=== PATIENT | female | born 1960 | race Two or more races ===

== ENCOUNTER 2024-11-24 07:00 | Inpatient (IN) | payer MEDICARE, MEDICAID ==
[2024-11-22 09:43] LABS: Basophils # (auto) 0.1 10 ^3/uL (0-0.2); Basophils % (auto) 0.7 % (0.0-2.0); Eosinophils # (auto) 0.4 10 ^3/uL (0-0.8); Eosinophils % (auto) 5.4 % (0.0-7.0); Hematocrit 37.3 % (36.0-46.0); Hemoglobin 12.4 g/dL (12.2-16.2); Lymphocytes # (auto) 1.8 10 ^3/uL (0.4-5.4); Lymphocytes % (auto) 25.4 % (10.0-50.0); Mean Corpuscular Hemoglobin 27.5 pg (28.0-32.0); Mean Corpuscular Hgb Conc. 33.2 g/dL (32.0-36.0); Mean Corpuscular Volume 82.8 fL (80.0-100.0); Monocytes # (auto) 0.6 10 ^3/uL (0-1.3); Monocytes % (auto) 8.2 % (0.0-12.0); Neutrophils # (auto) 4.2 10 ^3/uL (1.6-8.6); Neutrophils % (auto) 60.3 % (37.0-80.0); Platelet Count (auto) 269 10^3/uL (140-450); Red Blood Cells 4.51 10^6/uL (4.0-5.20); Red Cell Distribution Width 14.8 % (11.8-14.3); White Blood Cell 6.9 10^3/uL (4.4-10.8)
[2024-11-22 09:46] LABS: INR 0.98 (0.9-1.15); Partial Thromboplastin Time 30.3 SEC (24.5-34.5); Prothrombin Time 10.4 sec (9.3-11.8)
[2024-11-22 09:49] LABS: Alanine Aminotransferase 13 U/L (7-40); Albumin 4.8 g/dL (3.2-4.8); Alkaline Phosphatase 75 U/L (46-116); Anion Gap 9 (5-15); BUN/Creatinine Ratio 27.9 (10.0-20.0); Blood Urea Nitrogen 19 mg/dL (9-23); Carbon Dioxide 27 mmol/L (20-31); Chloride 103 mmol/L (98-107); Glucose 103 mg/dL (74-106); Potassium 3.7 mmol/L (3.5-5.1); Sodium 139 mmol/L (136-145); Total Protein 7.4 g/dL (5.7-8.2)
[2024-11-22 09:51] LABS: Bilirubin, Total 0.4 mg/dL (0.2-1.0)
[2024-11-22 09:58] LABS: Aspartate Aminotransferase 12 U/L (13-40)
[2024-11-22 10:00] LABS: Urine Bacteria FEW /hpf (None Seen); Urine Blood Negative /uL (Negative); Urine Clarity Clear (Clear); Urine Protein, UAD 1+ (Negative); Urine Specific Gravity 1.013 (1.001-1.035); Urine Squamous Epithelial Cell FEW /hpf (<5); Urine Urobilinogen Normal (Negative); Urine WBC 11 /HPF (0-5); Urine pH 5.5 (5.0-9.0)
[2024-11-22 10:01] LABS: Urine Color Light-Yellow (Yellow)
[2024-11-24] VITALS (17 sets, daily range): BP systolic 122–161; BP diastolic 44–70; PULSE 50–72; RESP 16–18; TEMP 95.9–98.8; O2SAT 92–100
[~2024-11-24] VITALS: Ht 160 cm; Wt 110.2 kg
[~2024-11-24 07:00] MED LIST: AMLO1TAB23 PO; ASPI81CH74 PO; ATOR20TA50 PO; AZEL137S7; BIOT10004 PO; CALCTAB PO; CARB1DRO OP; CARV-217 PO; CYCL0.09 OP; FAMO-12 PO; FLUO-125 PO; GABA-1308 PO; ISO60SRT PO; LACT12CR17 EX; LOSA100T25 PO; METF-372 PO; OMEG1400 PO; TIRZ2.5I SC; TRAZ-227 PO; [UNRECOGNIZED DRUG - CODE] OP
[2024-11-24] MEDS: ceFAZolin 2 GM/D5W50ml 50 ML IV ONE (07:15)
[2024-11-24] MEDS ORDERED: ePHEDrine SULFATE 50 MG/ML AMP ONE (10:15)
[2024-11-24] MEDS ORDERED: KETAMINE 50mg/ML 1ml syringe ONE (10:15)
[2024-11-24] MEDS ORDERED: MORPHINE SULF PF 5 MG/10 ML VIAL ONE (10:15)
[2024-11-24] MEDS ORDERED: fentaNYL CITRATE 100 MCG/2 ML VL ONE (10:15)
[2024-11-24] MEDS ORDERED: KETOROLAC TROMETH 30 MG/ML 1ML VIAL ONE (10:15)
[2024-11-24] MEDS ORDERED: PHENYLEPHRINE HCL 10 MG/ML VL ONE (10:15)
[2024-11-24] MEDS ORDERED: MIDAZOLAM HCL 2MG/2ML 2ml VIAL (1mg/ml) ONE (10:15)
[2024-11-24] MEDS ORDERED: GLYCOPYRROLATE 0.2 MG/ML 1ML VIAL ONE (10:16)
[2024-11-24] MEDS ORDERED: PROPOFOL 10 MG/ML 20 ML IV ONE (10:16)
[2024-11-24] MEDS ORDERED: ONDANSETRON HCL 4 MG/2 ML VIAL ONE (10:16)
[2024-11-24] MEDS: BUPIVACAINE 0.25% INJ 50ML VIAL ONE (10:17)
[2024-11-24] MEDS: TRANEXAMIC ACID 20 ML ONE (10:21)
[2024-11-24] MEDS: CEFEPIME 1GM/ 50ML 50 ML IV ONE (11:15)
[2024-11-24] MEDS: VANCOMYCIN HCL 1000 MG VL ONE ×2 (12:26)
[2024-11-24] MEDS ORDERED: ONDANSETRON HCL 4 MG/2 ML VIAL IV PRN (13:00)
[2024-11-24] MEDS ORDERED: NALOXONE HCL 0.4 MG/ML VIAL IV PRN (13:00)
[2024-11-24] MEDS ORDERED: DexAMETHasone SOD PHOS 10MG/1ML VIAL INJ IV PRN (13:00)
[2024-11-24] MEDS ORDERED: diphenhdrAMINE HCL 50 MG/1 ML VL IV PRN (13:00)
[2024-11-24] MEDS ORDERED: MORPHINE SULFATE INJ 2 MG/ml SYRG IV PRN (13:15)
[2024-11-24] MEDS ORDERED: NITROGLYCERIN 0.4 MG SL TAB SL PRN (13:15)
--- NOTE | 2024-11-24 13:34 | DVHOP2 ---
Operative Report - 2 Report Details Date: 11/24/24 Preop Diagnosis: Right knee osteoarthritis , endstage Postop Diagnosis: same Surgeon: René Sol MD Java Spring Developer: none Anesthesiologist: Dr Rueda Anesthesia: Regional Drains: none Implant: [place] PS knee Femur 4, Tibia 4, tray 9, patella 29 Consent: The patient was informed of the risks and benefits of the procedure. These incl ude but are not limited to complications of anesthesia, postoperative infection, incomplete relief of symptoms, recurrence of symptoms, damage to blood vessels, nerves and tendons, deep venous thrombosis, pulmonary embolism and possible need for repeat surgery in the future. Complications: none Estimated Blood Loss: 200 cc Fluids: 1 L crystalloid Findings: Right knee OA , endstage Indications for Surgery: Right knee OA endstage, non responsive to conservative care, affecting ADLs Name of Procedure Performed Right Total knee arthroplasty Procedure Details Procedure Details: Patient brought into the operating room received Ancef 2 g IV piggyback preoperatively Tx a 2 g IV piggyback preoperatively spinal anesthetic Dr. Stafforded without complication nonsterile tourniquet right thigh sterile prep and drape right lower extremity time-out performed cautioned right combination right side correct site after reviewing the operative consent history and physical my initials on right knee exsanguination with the Esmarch tourniquet elevated to 300 mm Hg 45 minute time anterior longitudinal incision made sharp to add to deep fascia medial parapatellar understood incision made eversion of patella hyperflexion of knee excision of suprapatellar fat infrapatellar fat remain to gain access to intramedullary canal of the femur intramedullary guide and distal femoral cutting block set for 5 degree valgus and 8 mm resection 8 mm distal tip distal femoral cut made then the posterior femoral condylar referencing guide tapped into place and a size four seemed to be appropriate size a size four four in one cutting block tapped into place distal femoral cuts made femoral notch cutting guide tapped into place distal femoral cuts made of notch cuts I had retractors placed posterior medial and lateral to tibial plateau meet Reamer to gain access to intramedullary canal of tibia intramedullary guide anam then used to align proximal tibia resection guide resecting 2 mm off of low or medial side aligning with the 2nd metatarsal ray proximal tibial cut made soft tissue balancing performed balancing medial and lateral as well as flexion-extension with our release of deep fibers of medial collateral ligament and subperiosteal elevation proximal medial tibia trial alignment and with a four femur for tibia nine trial with excellent range of motion stability varus valgus throughout range of motion and good patellar tracking rotation of the tibial component then marked tibial tray then pinned into place tibial keel punch used our tapped into place the patellar surface prepared a size 29 patellar button resection 9 mm of bone and drilling three pegs a triangular down leg a standard longitudinal traction excellent hemostasis noted irrigation performed knee repacked re-exs anguinated with the Esmarch tourniquet elevated to 300 mm Hg postop lavage of all bony surfaces as cementing of should components into place four femur four tibia nine poly 29 patella excellent range of motion stability confirmed began and excellent patellar tracking confirmed with only slight lateral retinacular release required and then to regular down again excellent hemostasis noted irrigation of with Betadine saline mixture then normal saline then placement of vancomycin powder 1 g then closure I assume prompted a Vicryl suture subcutaneous 2-0 Vicryl suture skin haritha fluffs ABD Roger wrap no drains specimens or complications knows his voice. Specimen: none Condition Stable Disposition Still a Patient RENÉ SOL MD Nov 24, 2024 13:34
[2024-11-24] MEDS ORDERED: BISACODYL 5 MG EC TAB PO PRN (13:45)
[2024-11-24] MEDS: LACTATED RINGER'S 1,000 ML IV SCH (13:45)
[2024-11-24] MEDS: ceFAZolin 1GM/50ML 50 ML IV SCH (14:00)
--- NOTE | 2024-11-24 14:14 | DVH ---
EXAM: XY R KNEE 3V XRAY CLINICAL INDICATION: S/P SURGERY TECHNIQUE: XY R KNEE 3V XRAY Comparison: None FINDINGS/IMPRESSION: Right total knee arthroplasty.
[2024-11-24] MEDS: KETOROLAC TROMETH 30 MG/ML 1ML VIAL IV PRN (16:06)
[2024-11-24] MEDS: CLINDAMYCIN 600MG IV 50 ML IV SCH (18:11)
[2024-11-24] MEDS: DOCUSATE SOD 100 MG CAP PO SCH (22:28)
[2024-11-25] VITALS (23 sets, daily range): BP systolic 122–162; BP diastolic 41–70; PULSE 56–72; RESP 14–20; TEMP 97.9–98.6; O2SAT 92–99
[2024-11-25] MEDS: ACETAMINOPHEN 325 MG TAB PO PRN (10:40)
[2024-11-25] MEDS: ENOXAPARIN SOD 30 MG/0.3 ML SYRINGE SC SCH (10:41)
--- NOTE | 2024-11-25 12:13 | DVHPN2 ---
Date of Progress Note Date of Progress Note Date of Progress Note: 11/25/24 Date of Admission Date of Admission Date of Admission: Date of Admission: Nov 24, 2024 at 13:13 Overnight Events Overnight events Overnight Events pt has orozco in , tess pain on PO meds, no PT yet Allergies: Coded Allergies: NO KNOWN ALLERGIES (Unverified , 11/18/24) Home Meds Reported Medications [place]-3 Fatty Acids ([place]-3) 1,400 Mg Cap, 1000 MG PO DAILY, CAP 11/18/24 Lactic Acid (Ammonium Lactate) 12 % Cre, 12 % EX DAILY, CRE 11/18/24 Trazodone Hcl (Trazodone Hcl) 50 Mg Tab, 50 MG PO HS, MG 11/18/24 Gabapentin (Gabapentin) 100 Mg Cap, 100 MG PO BID for 30 Days, MG 11/18/24 Ketotifen Fumarate (Ophth) (Ketotifen Fumarate) 0.035 % Agueda, 0.025 % OP DAILY, ML 11/18/24 Metformin Hydrochloride (Metformin Hcl) 1,000 Mg Tab, 1 TAB PO BID, #60 TAB 5 Refills 11/18/24 Azelastine Hcl-Fluticasone Pro (DYMISTA) 1 Spr Spr, 1 SPRAY NA BID, #23 GRAMS 6 Refills 11/18/24 Carvedilol (Coreg) 25 Mg Tab, 1 TAB PO BID, #60 TAB 5 Refills 11/18/24 Cyclosporine (Cequa) 0.09 % Agueda, 0.09 % OP DAILY, ML 11/18/24 Carboxymethylcellulose Sodium (Celluvisc) 1 % Bryce, 1 % OP DAILY, DROP 11/18/24 Calcium Carbonate-Cholecalcife (Caltrate 600+D3 600-800 mg-Unit) 1 Tab Tab, 1 TAB PO, TAB 11/18/24 Fluoxetine Hcl (Fluoxetine Hcl) 20 Mg Cap, 20 MG PO DAILY for 30 Days, MG 11/18/24 Famotidine (Famotidine) 20 Mg Tab, 40 MG PO DAILY for 30 Days, MG 11/18/24 Amlodipine Besylate (Amlodipine Besylate) 10 Mg Tab, 1 TAB PO DAILY, #30 TAB 5 Refills 11/18/24 Atorvastatin Calcium (ATORVASTATIN CALCIUM) 20 Mg Tab, 1 TAB PO DAILY, #30 TAB 5 Refills 11/18/24 Isosorbide Mononitrate (Isosorbide Mononitrate ER) 60 Mg Tab, 60 MG PO DAILY, TAB 11/18/24 Losartan Potassium & Hydrochlo (Hyzaar) 1 Tab Tab, 1 TAB PO DAILY, #30 TAB 5 Refills 11/18/24 Biotin (Vitamin H) (Biotin) 1,000 Mcg Tab, 1000 MCG PO DAILY, TAB 11/18/24 Tirzepatide (Mounjaro) Unknown Strength Inj, SC, INJ 11/18/24 Aspirin (Aspirin 81 Low Dose) 81 Mg Chw, 81 MG PO, TAB.CHEW 11/18/24 Current Medications Current Medications Medications (Trade) Dose Ordered Sig/Alejandra Route PRN Reason Start Time Stop Time Status Last Admin Diphenhydramine HCl (Benadryl Injection) 25 mg Q4HP PRN IV FOR ITCHING 11/24/24 13:00 Ondansetron HCl (Zofran) 4 mg Q4HP PRN IV NAUSEA / VOMITING 11/24/24 13:00 Naloxone HCl (Narcan) 0.2 mg Q5M PRN IV For respirations < than 10/min 11/24/24 13:00 11/24/24 13:11 DC Dexamethasone Sodium Phosphate (Decadron Injection) 10 mg LPN RN PRN IV FOR ITCHING 11/24/24 13:00 11/24/24 13:11 DC Ketorolac Tromethamine (Toradol Injection) 15 mg Q6HP PRN IV MODERATE PAIN (4-6 PAIN SCALE) 11/24/24 13:00 11/29/24 12:59 11/25/24 05:17 Nitroglycerin (Ntrostat Sublingual) 0.4 mg Q5MINP PRN SL FOR CHEST PAIN 11/24/24 13:15 Morphine Sulfate 2 mg Q30M PRN IV FOR CHEST PAIN 11/24/24 13:15 Lactated Ringer's 1,000 ml @ 100 mls/hr Q10H IV 11/24/24 13:45 11/25/24 10:43 Cefazolin Sodium 50 ml @ 50 mls/hr Q6H IV 11/24/24 14:00 11/25/24 02:59 DC 11/25/24 02:24 Clindamycin Phosphate 50 ml @ 50 mls/hr Q6HR IV 11/24/24 18:00 11/25/24 06:59 DC 11/25/24 05:21 Acetaminophen (Tylenol Tablet) 650 mg Q6HP PRN PO MILD PAIN OR TEMP >101 11/24/24 13:45 11/25/24 10:40 Docusate Sodium (Colace Capsule) 100 mg Q12HR PO 11/24/24 22:00 11/25/24 10:41 Bisacodyl (Dulcolax EC Tablet) 5 mg Q12HP PRN PO FOR CONSTIPATION 11/24/24 13:45 Enoxaparin Sodium (Lovenox) 30 mg Q12HR SC 11/25/24 10:00 11/25/24 10:41 Physical Examination General Examination: Last Vital sign Vital Signs Date Time Temp Pulse Resp B/P (MAP) Pulse Ox O2 Delivery O2 Flow Rate FiO2 11/25/24 09:00 98.1 60 20 130/43 (72) 95 98.1 11/24/24 20:00 Nasal Cannula* 2 28 General: General: No apparent distress, appears comfortable. Cooperative. Extremities: Right knee incision well healed NVI no drainage knee immobilizer in place Neurological Examination: Neurological Examination: Mental Status: Cranial Nerves: Motor Examination: Reflexes: Sensory: Coordination: Gait: Labs: Labs: Laboratory Tests Test 11/22/24 09:04 11/24/24 07:35 Range/Units White Blood Count 6.9 4.4-10.8 10^3/uL Red Blood Count 4.51 4.0-5.20 10^6/uL Hemoglobin 12.4 12.2-16.2 g/dL Hematocrit 37.3 36.0-46.0 % Mean Corpuscular Volume 82.8 80.0-100.0 fL Mean Corpuscular Hemoglobin 27.5 L 28.0-32.0 pg Mean Corpuscular Hemoglobin Concent 33.2 32.0-36.0 g/dL Red Cell Distribution Width 14.8 H 11.8-14.3 % Platelet Count 269 140-450 10^3/uL Mean Platelet Volume 7.3 6.9-10.8 fL Neutrophils (%) (Auto) 60.3 37.0-80.0 % Lymphocytes (%) (Auto) 25.4 10.0-50.0 % Monocytes (%) (Auto) 8.2 0.0-12.0 % Eosinophils (%) (Auto) 5.4 0.0-7.0 % Basophils (%) (Auto) 0.7 0.0-2.0 % Neutrophils # (Auto) 4.2 1.6-8.6 10 ^3/uL Lymphocytes # (Auto) 1.8 0.4-5.4 10 ^3/uL Monocytes # (Auto) 0.6 0-1.3 10 ^3/uL Eosinophils # (Auto) 0.4 0-0.8 10 ^3/uL Basophils # (Auto) 0.1 0-0.2 10 ^3/uL Nucleated Red Blood Cells 0.0 % Prothrombin Time 10.4 9.3-11.8 sec Prothrombin Time INR 0.98 0.9-1.15 Activated Partial Thromboplast Time 30.3 24.5-34.5 SEC Urine Color Light-yellow Yellow Urine Clarity Clear Clear Urine pH 5.5 5.0-9.0 Urine Specific [place] 1.013 1.001-1.035 Urine Protein 1+ H Negative Urine Ketones Negative Negative Urine Blood Negative Negative /uL Urine Nitrite Negative Negative Urine Bilirubin Negative Negative Urine Urobilinogen Normal Negative mg/dL Urine Leukocyte Esterase 1+ Negative /uL Urine RBC <1 0 - 4 /hpf Urine Microscopic WBC 11 H 0-5 /HPF Urine Squamous Epithelial Cells Few <5 /hpf Urine Bacteria Few H None Seen /hpf Urine Glucose Normal Normal mg/dL Sodium Level 139 136-145 mmol/L Potassium Level 3.7 3.5-5.1 mmol/L Chloride Level 103 98-107 mmol/L Carbon Dioxide Level 27 20-31 mmol/L Anion Gap 9 5-15 Blood Urea Nitrogen 19 9-23 mg/dL Creatinine 0.68 0.550-1.02 mg/dL Glomerular Filtration Rate Calc 97 >90 mL/min BUN/Creatinine Ratio 27.9 H 10.0-20.0 Serum Glucose 103 74-106 mg/dL Calcium Level 10.0 8.7-10.4 mg/dL Total Bilirubin 0.4 0.2-1.0 mg/dL Aspartate Amino Transferase (AST) 12 L 13-40 U/L Alanine Aminotransferase (ALT) 13 7-40 U/L Alkaline Phosphatase 75 46-116 U/L Total Protein 7.4 5.7-8.2 g/dL Albumin 4.8 3.2-4.8 g/dL POC Glucose 117 H 70-106 mg/dl Assessment/Plan Assessment/Plan Assessment and Plan:Olena Pate is a 64 year old female POD 1 s/p RIGHT TKA 1) PT 2) wean from orozco Plan discussed with: Patient RENÉ SOL MD Nov 25, 2024 12:13
[2024-11-26] VITALS (8 sets, daily range): BP systolic 110–146; BP diastolic 41–55; PULSE 59–80; RESP 14–19; TEMP 97.6–98.6; O2SAT 90–98
--- NOTE | 2024-11-26 13:30 | DVHPN2 ---
Date of Progress Note Date of Progress Note Date of Progress Note: 11/26/24 Date of Admission Date of Admission Date of Admission: Date of Admission: Nov 24, 2024 at 13:13 Overnight Events Overnight events Overnight Events Pt able to void without orozco catheter Pt tess pain well on PO meds Pt received PT yesterday afternoon, walked to door Allergies: Coded Allergies: NO KNOWN ALLERGIES (Unverified , 11/18/24) Home Meds Reported Medications [place]-3 Fatty Acids ([place]-3) 1,400 Mg Cap, 1000 MG PO DAILY, CAP 11/18/24 Lactic Acid (Ammonium Lactate) 12 % Cre, 12 % EX DAILY, CRE 11/18/24 Trazodone Hcl (Trazodone Hcl) 50 Mg Tab, 50 MG PO HS, MG 11/18/24 Gabapentin (Gabapentin) 100 Mg Cap, 100 MG PO BID for 30 Days, MG 11/18/24 Ketotifen Fumarate (Ophth) (Ketotifen Fumarate) 0.035 % Agueda, 0.025 % OP DAILY, ML 11/18/24 Metformin Hydrochloride (Metformin Hcl) 1,000 Mg Tab, 1 TAB PO BID, #60 TAB 5 Refills 11/18/24 Azelastine Hcl-Fluticasone Pro (DYMISTA) 1 Spr Spr, 1 SPRAY NA BID, #23 GRAMS 6 Refills 11/18/24 Carvedilol (Coreg) 25 Mg Tab, 1 TAB PO BID, #60 TAB 5 Refills 11/18/24 Cyclosporine (Cequa) 0.09 % Agueda, 0.09 % OP DAILY, ML 11/18/24 Carboxymethylcellulose Sodium (Celluvisc) 1 % Bryce, 1 % OP DAILY, DROP 11/18/24 Calcium Carbonate-Cholecalcife (Caltrate 600+D3 600-800 mg-Unit) 1 Tab Tab, 1 TAB PO, TAB 11/18/24 Fluoxetine Hcl (Fluoxetine Hcl) 20 Mg Cap, 20 MG PO DAILY for 30 Days, MG 11/18/24 Famotidine (Famotidine) 20 Mg Tab, 40 MG PO DAILY for 30 Days, MG 11/18/24 Amlodipine Besylate (Amlodipine Besylate) 10 Mg Tab, 1 TAB PO DAILY, #30 TAB 5 Refills 11/18/24 Atorvastatin Calcium (ATORVASTATIN CALCIUM) 20 Mg Tab, 1 TAB PO DAILY, #30 TAB 5 Refills 11/18/24 Isosorbide Mononitrate (Isosorbide Mononitrate ER) 60 Mg Tab, 60 MG PO DAILY, TAB 11/18/24 Losartan Potassium & Hydrochlo (Hyzaar) 1 Tab Tab, 1 TAB PO DAILY, #30 TAB 5 Refills 11/18/24 Biotin (Vitamin H) (Biotin) 1,000 Mcg Tab, 1000 MCG PO DAILY, TAB 11/18/24 Tirzepatide (Mounjaro) Unknown Strength Inj, SC, INJ 11/18/24 Aspirin (Aspirin 81 Low Dose) 81 Mg Chw, 81 MG PO, TAB.CHEW 11/18/24 Physical Examination General Examination: Last Vital sign Vital Signs Date Time Temp Pulse Resp B/P (MAP) Pulse Ox O2 Delivery O2 Flow Rate FiO2 11/26/24 08:32 98.6 75 18 146/55 (85) 94 98.6 11/26/24 08:00 Nasal Cannula* 2 28 General: General: No apparent distress, appears comfortable. Cooperative. Extremities: Right knee no drainage in knee immobilizer NVI Skin: no drainage Neurological Examination: Neurological Examination: Mental Status: Cranial Nerves: Motor Examination: Reflexes: Sensory: Coordination: Gait: NVI Labs: Labs: Laboratory Tests Test 11/22/24 09:04 11/24/24 07:35 Range/Units White Blood Count 6.9 4.4-10.8 10^3/uL Red Blood Count 4.51 4.0-5.20 10^6/uL Hemoglobin 12.4 12.2-16.2 g/dL Hematocrit 37.3 36.0-46.0 % Mean Corpuscular Volume 82.8 80.0-100.0 fL Mean Corpuscular Hemoglobin 27.5 L 28.0-32.0 pg Mean Corpuscular Hemoglobin Concent 33.2 32.0-36.0 g/dL Red Cell Distribution Width 14.8 H 11.8-14.3 % Platelet Count 269 140-450 10^3/uL Mean Platelet Volume 7.3 6.9-10.8 fL Neutrophils (%) (Auto) 60.3 37.0-80.0 % Lymphocytes (%) (Auto) 25.4 10.0-50.0 % Monocytes (%) (Auto) 8.2 0.0-12.0 % Eosinophils (%) (Auto) 5.4 0.0-7.0 % Basophils (%) (Auto) 0.7 0.0-2.0 % Neutrophils # (Auto) 4.2 1.6-8.6 10 ^3/uL Lymphocytes # (Auto) 1.8 0.4-5.4 10 ^3/uL Monocytes # (Auto) 0.6 0-1.3 10 ^3/uL Eosinophils # (Auto) 0.4 0-0.8 10 ^3/uL Basophils # (Auto) 0.1 0-0.2 10 ^3/uL Nucleated Red Blood Cells 0.0 % Prothrombin Time 10.4 9.3-11.8 sec Prothrombin Time INR 0.98 0.9-1.15 Activated Partial Thromboplast Time 30.3 24.5-34.5 SEC Urine Color Light-yellow Yellow Urine Clarity Clear Clear Urine pH 5.5 5.0-9.0 Urine Specific [place] 1.013 1.001-1.035 Urine Protein 1+ H Negative Urine Ketones Negative Negative Urine Blood Negative Negative /uL Urine Nitrite Negative Negative Urine Bilirubin Negative Negative Urine Urobilinogen Normal Negative mg/dL Urine Leukocyte Esterase 1+ Negative /uL Urine RBC <1 0 - 4 /hpf Urine Microscopic WBC 11 H 0-5 /HPF Urine Squamous Epithelial Cells Few <5 /hpf Urine Bacteria Few H None Seen /hpf Urine Glucose Normal Normal mg/dL Sodium Level 139 136-145 mmol/L Potassium Level 3.7 3.5-5.1 mmol/L Chloride Level 103 98-107 mmol/L Carbon Dioxide Level 27 20-31 mmol/L Anion Gap 9 5-15 Blood Urea Nitrogen 19 9-23 mg/dL Creatinine 0.68 0.550-1.02 mg/dL Glomerular Filtration Rate Calc 97 >90 mL/min BUN/Creatinine Ratio 27.9 H 10.0-20.0 Serum Glucose 103 74-106 mg/dL Calcium Level 10.0 8.7-10.4 mg/dL Total Bilirubin 0.4 0.2-1.0 mg/dL Aspartate Amino Transferase (AST) 12 L 13-40 U/L Alanine Aminotransferase (ALT) 13 7-40 U/L Alkaline Phosphatase 75 46-116 U/L Total Protein 7.4 5.7-8.2 g/dL Albumin 4.8 3.2-4.8 g/dL POC Glucose 117 H 70-106 mg/dl Assessment/Plan Assessment/Plan Assessment and Plan:Olena Pate is a 64 year old female POD 2 Right TKA, doing well Pt evaluated with Sander Santiago PA interpreting 1) clear for dc from ortho view 2) WBAT with knee immobilizer, FWW 3) dc meds, norco 10/325 have been called in 4) follow up ortho clinic 2 wks with XR Right Knee Plan discussed with: Patient RENÉ SOL MD Nov 26, 2024 13:30
--- NOTE | 2024-11-26 21:07 | DVHPN2 ---
Progress Note Date Seen: Nov 27, 2024 Medical Necessity Reason Pt with a Central, PICC or Fol: No Subjective Review of Systems: CVS:Normal, RESPIRATORY:Normal, GI:Normal, :Normal, NEURO:Normal Objective vital signs Vital Sign Date Time Temp Pulse Resp B/P (MAP) Pulse Ox O2 Delivery O2 Flow Rate FiO2 11/26/24 16:49 97.9 70 16 115/41 (65) 98 97.9 11/26/24 08:00 Nasal Cannula* 2 28 Total Intake and Output 11/25/24 11/25/24 11/26/24 15:00 23:00 07:00 Intake Total 350 ml 3790 ml 1200 ml Output Total 1700 ml 1100 ml Balance -1350 ml 2690 ml 1200 ml medications Current Medications Medications Dose Ordered Sig/Alejandra Route Start Time Stop Time Status Last Admin Dose Admin Diphenhydramine HCl 25 mg Q4HP PRN IV 11/24/24 13:00 Ondansetron HCl 4 mg Q4HP PRN IV 11/24/24 13:00 Ketorolac Tromethamine 15 mg Q6HP PRN IV 11/24/24 13:00 11/29/24 12:59 11/26/24 06:03 15 MG Nitroglycerin 0.4 mg Q5MINP PRN SL 11/24/24 13:15 Morphine Sulfate 2 mg Q30M PRN IV 11/24/24 13:15 Lactated Ringer's 1,000 ml @ 100 mls/hr Q10H IV 11/24/24 13:45 11/26/24 15:50 100 MLS/HR Acetaminophen 650 mg Q6HP PRN PO 11/24/24 13:45 11/26/24 16:57 650 MG Docusate Sodium 100 mg Q12HR PO 11/24/24 22:00 11/26/24 10:10 100 MG Bisacodyl 5 mg Q12HP PRN PO 11/24/24 13:45 Enoxaparin Sodium 30 mg Q12HR SC 11/25/24 10:00 11/26/24 10:10 30 MG Examination: GENERAL:Normal, LUNGS:Normal, CVS:Normal, ABDOMEN:Normal, SKIN:Normal, NEURO:Normal laboratory and microbiology Laboratory Tests 11/22/24 09:04 Test 11/22/24 09:04 Range/Units Serum Glucose 103 74-106 mg/dL Labs and/or images reviewed: Labs reviewed by me, Image(s) reviewed by me Problem List/Assessment/Plan Problem List/Assessment/Plan 1. S/P right knee replacement Pain medication 2. Hypertension Continue home meds 3. Hyperlipidemia Continue home meds Subjective: Awake and alert Objective: Patient was admitted S/P right knee replacement by Dr. Tho Rhodes, patient was experiencing severe knee pain. Dressing remains intact to right knee Plan: Pain medication as needed, awaiting clearance from electronic security specialist Plan discussed with: Patient Date of Service: Nov 27, 2024 Billing Provider: KHAI HURST MD Common Visit Codes: [id number] INP/OBS CARE (MOD) KIANA GOMEZ [employer] Nov 26, 2024 21:07
--- NOTE | 2024-11-26 21:07 | DVHHP2 ---
History of Present Illness History of Present Illness Patient was admitted S/P right knee replacement by Dr. Davila. Patient was having severe pain to right knee. Review of Systems Respiratory: No: Cough, Dry, Shortness of breath, SOB with excertion, Wheezing, Hemoptysis, Pleuritic Pain, Sputum, Wheezing, Other Cardiovascular: No: Chest Pain, Palpitations, Orthopnea, Paroxysmal Noc. Dyspnea, Edema, Lt Headedness, Other Gastrointestinal: No: Nausea, Vomiting, Abdominal Pain, Diarrhea, Constipation, Melena, Hematochezia, Other Skin: No: Rash, Lesions, Jaundice, Bruising, Other Allergies: Coded Allergies: NO KNOWN ALLERGIES (Unverified , 11/18/24) Medications Current Medications Medications Dose Ordered Sig/Alejandra Route Start Time Stop Time Status Last Admin Dose Admin Diphenhydramine HCl 25 mg Q4HP PRN IV 11/24/24 13:00 Ondansetron HCl 4 mg Q4HP PRN IV 11/24/24 13:00 Ketorolac Tromethamine 15 mg Q6HP PRN IV 11/24/24 13:00 11/29/24 12:59 11/26/24 06:03 15 MG Nitroglycerin 0.4 mg Q5MINP PRN SL 11/24/24 13:15 Morphine Sulfate 2 mg Q30M PRN IV 11/24/24 13:15 Lactated Ringer's 1,000 ml @ 100 mls/hr Q10H IV 11/24/24 13:45 11/26/24 15:50 100 MLS/HR Acetaminophen 650 mg Q6HP PRN PO 11/24/24 13:45 11/26/24 16:57 650 MG Docusate Sodium 100 mg Q12HR PO 11/24/24 22:00 11/26/24 10:10 100 MG Bisacodyl 5 mg Q12HP PRN PO 11/24/24 13:45 Enoxaparin Sodium 30 mg Q12HR SC 11/25/24 10:00 11/26/24 10:10 30 MG Exam Vital Signs Vital Signs Date Time Temp Pulse Resp B/P (MAP) Pulse Ox O2 Delivery O2 Flow Rate FiO2 11/26/24 16:49 97.9 70 16 115/41 (65) 98 97.9 11/26/24 08:00 Nasal Cannula* 2 28 General Appearance: Alert, Oriented X3, Cooperative Respiratory: Clear to auscultation Cardiovascular: Regular rate, Normal S1, Normal S2, No murmurs Abdominal: Normal bowel sounds, Soft, No tenderness Labs/Xrays Labs Test 11/24/24 07:35 11/22/24 09:04 Range/Units POC Glucose 117 H 70-106 mg/dl White Blood Count 6.9 4.4-10.8 10^3/uL Red Blood Count 4.51 4.0-5.20 10^6/uL Hemoglobin 12.4 12.2-16.2 g/dL Hematocrit 37.3 36.0-46.0 % Mean Corpuscular Volume 82.8 80.0-100.0 fL Mean Corpuscular Hemoglobin 27.5 L 28.0-32.0 pg Mean Corpuscular Hemoglobin Concent 33.2 32.0-36.0 g/dL Red Cell Distribution Width 14.8 H 11.8-14.3 % Platelet Count 269 140-450 10^3/uL Mean Platelet Volume 7.3 6.9-10.8 fL Neutrophils (%) (Auto) 60.3 37.0-80.0 % Lymphocytes (%) (Auto) 25.4 10.0-50.0 % Monocytes (%) (Auto) 8.2 0.0-12.0 % Eosinophils (%) (Auto) 5.4 0.0-7.0 % Basophils (%) (Auto) 0.7 0.0-2.0 % Neutrophils # (Auto) 4.2 1.6-8.6 10 ^3/uL Lymphocytes # (Auto) 1.8 0.4-5.4 10 ^3/uL Monocytes # (Auto) 0.6 0-1.3 10 ^3/uL Eosinophils # (Auto) 0.4 0-0.8 10 ^3/uL Basophils # (Auto) 0.1 0-0.2 10 ^3/uL Nucleated Red Blood Cells 0.0 % Prothrombin Time 10.4 9.3-11.8 sec Prothrombin Time INR 0.98 0.9-1.15 Activated Partial Thromboplast Time 30.3 24.5-34.5 SEC Urine Color Light-yellow Yellow Urine Clarity Clear Clear Urine pH 5.5 5.0-9.0 Urine Specific [place] 1.013 1.001-1.035 Urine Protein 1+ H Negative Urine Ketones Negative Negative Urine Blood Negative Negative /uL Urine Nitrite Negative Negative Urine Bilirubin Negative Negative Urine Urobilinogen Normal Negative mg/dL Urine Leukocyte Esterase 1+ Negative /uL Urine RBC <1 0 - 4 /hpf Urine Microscopic WBC 11 H 0-5 /HPF Urine Squamous Epithelial Cells Few <5 /hpf Urine Bacteria Few H None Seen /hpf Urine Glucose Normal Normal mg/dL Sodium Level 139 136-145 mmol/L Potassium Level 3.7 3.5-5.1 mmol/L Chloride Level 103 98-107 mmol/L Carbon Dioxide Level 27 20-31 mmol/L Anion Gap 9 5-15 Blood Urea Nitrogen 19 9-23 mg/dL Creatinine 0.68 0.550-1.02 mg/dL Glomerular Filtration Rate Calc 97 >90 mL/min BUN/Creatinine Ratio 27.9 H 10.0-20.0 Serum Glucose 103 74-106 mg/dL Calcium Level 10.0 8.7-10.4 mg/dL Total Bilirubin 0.4 0.2-1.0 mg/dL Aspartate Amino Transferase (AST) 12 L 13-40 U/L Alanine Aminotransferase (ALT) 13 7-40 U/L Alkaline Phosphatase 75 46-116 U/L Total Protein 7.4 5.7-8.2 g/dL Albumin 4.8 3.2-4.8 g/dL Assessment/Plan Assessment/Plan 1. S/P right knee replacement Pain medication 2. Hypertension Continue home meds 3. Hyperlipidemia Continue home meds Plan discussed with: Patient Date of Service: Nov 26, 2024 Billing Provider: KHAI HURST MD Common Visit Codes: [id number] INP/OBS CARE (MOD) KIANA GOMEZ [employer] Nov 26, 2024 21:07
[2024-11-27 01:00] VITALS: BP 137/42; PULSE 83; RESP 16; TEMP 98.5; O2SAT 94
[2024-11-27 05:00] VITALS: BP 123/52; PULSE 69; RESP 16; TEMP 98.6; O2SAT 95
[2024-11-27 08:00] VITALS: PULSE 68; PULSE 77; RESP 16; O2SAT 95
[2024-11-27 09:00] VITALS: BP 116/53; PULSE 68; RESP 16; TEMP 98.5; O2SAT 95
[2024-11-27] MEDS ORDERED: ASPI-325 PO (11:23)
--- NOTE | 2024-11-27 11:51 | DVHDS2 ---
Discharge Summary Date of Admission Nov 24, 2024 at 13:13 Date of Discharge: Nov 27, 2024 Admitting Diagnosis S/P right knee replacement Labs/Diagnostic Data: Laboratory Results Test 11/24/24 07:35 11/22/24 09:04 POC Glucose 117 mg/dl (70-106) White Blood Count 6.9 10^3/uL (4.4-10.8) Red Blood Count 4.51 10^6/uL (4.0-5.20) Hemoglobin 12.4 g/dL (12.2-16.2) Hematocrit 37.3 % (36.0-46.0) Mean Corpuscular Volume 82.8 fL (80.0-100.0) Mean Corpuscular Hemoglobin 27.5 pg (28.0-32.0) Mean Corpuscular Hemoglobin Concent 33.2 g/dL (32.0-36.0) Red Cell Distribution Width 14.8 % (11.8-14.3) Platelet Count 269 10^3/uL (140-450) Mean Platelet Volume 7.3 fL (6.9-10.8) Neutrophils (%) (Auto) 60.3 % (37.0-80.0) Lymphocytes (%) (Auto) 25.4 % (10.0-50.0) Monocytes (%) (Auto) 8.2 % (0.0-12.0) Eosinophils (%) (Auto) 5.4 % (0.0-7.0) Basophils (%) (Auto) 0.7 % (0.0-2.0) Neutrophils # (Auto) 4.2 10 ^3/uL (1.6-8.6) Lymphocytes # (Auto) 1.8 10 ^3/uL (0.4-5.4) Monocytes # (Auto) 0.6 10 ^3/uL (0-1.3) Eosinophils # (Auto) 0.4 10 ^3/uL (0-0.8) Basophils # (Auto) 0.1 10 ^3/uL (0-0.2) Nucleated Red Blood Cells 0.0 % Prothrombin Time 10.4 sec (9.3-11.8) Prothrombin Time INR 0.98 (0.9-1.15) Activated Partial Thromboplast Time 30.3 SEC (24.5-34.5) Urine Color Light-yellow (Yellow) Urine Clarity Clear (Clear) Urine pH 5.5 (5.0-9.0) Urine Specific [place] 1.013 (1.001-1.035) Urine Protein 1+ (Negative) Urine Ketones Negative (Negative) Urine Blood Negative /uL (Negative) Urine Nitrite Negative (Negative) Urine Bilirubin Negative (Negative) Urine Urobilinogen Normal mg/dL (Negative) Urine Leukocyte Esterase 1+ /uL (Negative) Urine RBC <1 /hpf (0 - 4) Urine Microscopic WBC 11 /HPF (0-5) Urine Squamous Epithelial Cells Few /hpf (<5) Urine Bacteria Few /hpf (None Seen) Urine Glucose Normal mg/dL (Normal) Sodium Level 139 mmol/L (136-145) Potassium Level 3.7 mmol/L (3.5-5.1) Chloride Level 103 mmol/L (98-107) Carbon Dioxide Level 27 mmol/L (20-31) Anion Gap 9 (5-15) Blood Urea Nitrogen 19 mg/dL (9-23) Creatinine 0.68 mg/dL (0.550-1.02) Glomerular Filtration Rate Calc 97 mL/min (>90) BUN/Creatinine Ratio 27.9 (10.0-20.0) Serum Glucose 103 mg/dL (74-106) Calcium Level 10.0 mg/dL (8.7-10.4) Total Bilirubin 0.4 mg/dL (0.2-1.0) Aspartate Amino Transferase (AST) 12 U/L (13-40) Alanine Aminotransferase (ALT) 13 U/L (7-40) Alkaline Phosphatase 75 U/L (46-116) Total Protein 7.4 g/dL (5.7-8.2) Albumin 4.8 g/dL (3.2-4.8) Other Laboratory Tests 11/22/24 09:04 Brief Hx & Hospital Course: Patient was admitted by Dr. Murillo S/P right knee replacement. Patient was admitted for pain control. Patient was seen and cleared by medical program specialist. Patient's case was discussed with PCP who will follow up with patient within a week. And we will place patient on DVT prophylaxis with Xarelto. Condition at Discharge: Stable Final Diagnosis/Problems List 1. S/P right knee replacement 2. Hypertension 3. Hyperlipidemia Discharge Disposition: Home Discharge Instruct/Medications Diet: Cardiac 2g Na,low cholest Activity: Bed rest Follow Up/Referral: PCP within 1 week orthopedic within 2 weeks Discharge Statement: "Patient was advised to return to the ER or call 911 if any headaches, dizziness, shortness of breath, chest pain, abdominal pain, bleeding, fevers, or worsening of medical condition. Patient was counseled about treatment plan, medications, possible side effects, patientverbalized understanding. All questions were answered to the best of my ability. This discharge took greater then 30 minutes in planning, reviewing documentation, counseling the patient, and discussing with other team members." ASSESSMENT ASSESSMENT Assessment 1. S/P right knee replacement 2. Hypertension 3. Hyperlipidemia KIANA GOMEZ [facility] Nov 27, 2024 11:51
[2024-11-27 13:00] VITALS: BP 123/46; PULSE 65; RESP 16; TEMP 98; O2SAT 96
[2024-11-27 13:43] VITALS: BP 123/46; PULSE 65; RESP 16; TEMP 98; O2SAT 96
== END 2024-11-27 14:35 | disposition home or self-care (01) | DRG 470 ==
LOC: SUR 07:00 → OVERFLOW 13:13 → WEST WING 15:06 → TELE-WESTW 11-25 11:35
PROVIDERS: ADMIT Nurse Practitioner; ATTEND Nurse Practitioner
PROC: 0SRC0J9 Replacement of Right Knee Joint with Synthetic Substitute, Cemented, Open Approach (ICD-10-PCS; principal; 2024-11-24 10:45)
DX: M17.11 Unilateral primary osteoarthritis, right knee (principal); E78.5 Hyperlipidemia, unspecified; I10 Essential (primary) hypertension; Z79.84 Long term (current) use of oral hypoglycemic drugs; Z79.899 Other long term (current) drug therapy; Z79.82 Long term (current) use of aspirin
CPT/HCPCS: 36415; 73562; 80053; 81001; 82962; 85025; 85610; 85730; 86850; 86900; 86901; 97116; 97163; 97530; G0378; J1885; J2250; J2405; J2704; J3490